=== PATIENT | female | born 1965 | race Hispanic/Latino ===

== ENCOUNTER → 2020-02-28 | Outpatient (CLI) | payer SELFPAY ==
--- NOTE | 2020-02-28 10:08 | Diagnostic Imaging Report ---
EXAM: Right upper quadrant abdominal ultrasound INDICATION: Elevated liver enzymes COMPARISON: None. TECHNIQUE: Transverse and longitudinal images of the right upper quadrant abdomen were obtained FINDINGS: Liver: Size: 13.4 cm in the right midclavicular line, normal Appearance: Normal echogenicity, mildly nodular contour Mass: No focal masses Gallbladder: Status post cholecystectomy. Bile Ducts: Intrahepatic Ducts: No dilatation Extrahepatic Ducts: Common bile duct measures 3 mm Pancreas: Visualized portions of the pancreatic head, neck and proximal body are normal. Kidney: The right kidney measures 12.4 cm without evidence of hydronephrosis or stone. Vessels: Aorta: Visualized portions are normal Inferior Vena Cava: Visualized portions are normal Main Portal Vein: 1.1 cm, normal size with hepatopetal flow. Free Fluid: No ascites or pleural effusion IMPRESSION: Mildly nodular liver surface contour, possibly representing early cirrhosis. Status post cholecystectomy. Signed by: Bert Jefferson MD on 02/28/2020 10:05 AM
== END ==
LOC: US 09:01
PROVIDERS: ATTEND Internal Medicine Gastroenterology
DX: R74.8 Abnormal levels of other serum enzymes (principal)
CPT/HCPCS: 76705